=== PATIENT | female | born 1985 | race Asian ===

== ENCOUNTER 2018-03-01 13:15 | Outpatient (CLI) | payer BC, OTHER ==
--- NOTE | 2018-03-01 16:36 | Ultrasound Report ---
Reason: ENCTR FOR TEST, RESULT POSITIVE Procedure Date: 03/01/2018 Accession Number: [id number] / [id number] Procedure: US - OB 14+ Weeks CPT Code: FULL RESULT: EXAM: LIMITED OBSTETRICAL ULTRASOUND EARLY SECOND TRIMESTER EXAM DATE: 03/01/2018 03:23 PM. CLINICAL HISTORY: Uncertain dates. COMPARISON: None. TECHNIQUE: Real-time sonographic evaluation of the fetus performed by the product grader. Multiple aircraft sales representative static images were saved for review. DATING: Established EGA uncertain. EGA 26 weeks 3 days with ARCELIA 06/04/2018 based on the current ultrasound. GENERAL EVALUATION Doss . Cardiac activity: 154 bpm. movement: Present. Presentation: Cephalic. Placenta: Anterior and right lateral position. No evidence for previa. Amniotic fluid: Subjectively normal. MVP 4.5 cm. BIOMETRY Bi-Parietal Diameter (BPD): 6.8 cm, 27 weeks 2 days Head Circumference (HC): 24.6 cm, 26 weeks 5 days Abdominal Circumference (AC): 22.1 cm, 26 weeks 3 days Femur Length (FL): 4.9 cm, 26 weeks 2 days Estimated Weight: 951 gm. ANATOMY Within the limits of late second trimester ultrasound, no anatomic abnormality is detected. The profile/nasal bone, imaged intracranial structures, anterior abdominal wall, cord insert region, stomach, and bladder are imaged and appear normal for gestational age. Cardiac situs is normal. 4 chamber heart and outflow tracts are not seen. A left ventricular echogenic focus may be present. Both upper and lower extremities are seen. MATERNAL STRUCTURES Uterus: Unremarkable. Cervix: Long and closed. 4.2 cm. Right ovary/adnexa: Unremarkable. Left ovary/adnexa: Unremarkable. Free fluid: None. IMPRESSION: 1. Doss intrauterine with gestational age 26 weeks 3 days based on composite ultrasound measurements today. 2. ARCELIA 06/04/2018 3. cardiac anatomy and outflow tracts are not well seen. Otherwise no anatomic abnormalities are identified at this time. RADIA
== END 2018-03-01 13:16 | disposition home or self-care (01) ==
LOC: DI 13:15
PROVIDERS: ATTEND Obstetrics & Gynecology
DX: Z32.01 Encounter for pregnancy test, result positive (principal); Z3A.26 26 weeks gestation of pregnancy
CPT/HCPCS: 76805

== ENCOUNTER 2018-03-16 08:08 | Outpatient (CLI) | payer BC ==
[2018-03-16 09:39] LABS: BASOPHILS # (AUTO) 0.1 10^3/uL (0.0-0.1); BASOPHILS % (AUTO) 0.7 %; EOSINOPHILS # (AUTO) 0.2 10^3/uL (0.0-0.7); EOSINOPHILS % (AUTO) 1.6 %; HGB - HEMOGLOBIN 12.2 g/dL (12.0-16.0); LYMPHOCYTES # (AUTO) 1.6 10^3/uL (1.5-3.5); LYMPHOCYTES % (AUTO) 13.8 %; MEAN CORPUSCULAR HEMOGLOBIN 32.6 pg (27.0-31.0); MEAN CORPUSCULAR HGB CONC 34.5 g/dL (32.0-36.0); MEAN CORPUSCULAR VOLUME 94.6 fL (81.0-99.0); MEAN PLATELET VOLUME 7.1 fL (7.9-10.8); MONOCYTES # (AUTO) 0.9 10^3/uL (0.0-1.0); MONOCYTES % (AUTO) 7.7 %; NEUTROPHILS # (AUTO) 8.6 10^3/uL (1.5-6.6); NEUTROPHILS % (AUTO) 76.2 %; PLT - PLATELET COUNT 282 10^3/uL (130-450); RED BLOOD COUNT 3.73 10^6/uL (4.20-5.40); RED CELL DISTRIBUTION WIDTH 13.2 % (12.0-15.0); WHITE BLOOD COUNT 11.3 x10^3/uL (4.8-10.8)
[2018-03-16 10:09] LABS: BILIRUBIN,URINE NEGATIVE (NEGATIVE); GLUCOSE, URINE (UA) 250 mg/dL (NEGATIVE); KETONES,URINE (UA) NEGATIVE (NEGATIVE); LEUKOCYTE ESTERASE, URINE NEGATIVE (NEGATIVE); NITRITE,URINE NEGATIVE (NEGATIVE); OCCULT BLOOD,URINE NEGATIVE (NEGATIVE); PROTEIN,URINE NEGATIVE (NEGATIVE); UROBILINOGEN,URINE 0.2 (NORMAL) E.U./dL (NORMAL)
[2018-03-16 10:14] LABS: CLARITY,URINE CLEAR (CLEAR)
[2018-03-16 10:27] LABS: BACTERIA,URINE Few /HPF (None Seen); MUCUS,URINE Few Strands; RBC,URINE 0-5 /HPF (0-5); SQUAMOUS EPITHELIAL CELL,UR MOD Squamous (<= Few)
[2018-03-16 10:34] LABS: HEMOGLOBIN A1C 0.37 g/dL; HEMOGLOBIN A1C % 4.8 % (4.6-6.2)
[2018-03-17 11:57] LABS: HIV AG/AB 4TH GEN NON-REACTIVE (NON-REACTIVE)
[2018-03-17 13:02] LABS: HEPATITIS B SURFACE ANTIGEN NON-REACTIVE (NON-REACTIVE)
== END 2018-03-16 08:09 | disposition home or self-care (01) ==
LOC: LAB 08:08
PROVIDERS: ATTEND Obstetrics & Gynecology
DX: Z12.4 Encounter for screening for malignant neoplasm of cervix (principal); Z36.9 Encounter for antenatal screening, unspecified
CPT/HCPCS: 36415; 81001; 81599; 82950; 83036; 85025; 86592; 86762; 86850; 86900; 86901; 87340; 87389

== ENCOUNTER 2018-03-28 09:29 | Outpatient (CLI) | payer BC ==
--- NOTE | 2018-03-28 13:25 | Ultrasound Report ---
Reason: ENCOUNTER FOR SCREENING FOR MALFORMATION Procedure Date: 03/28/2018 Accession Number: [id number] / [id number] Procedure: US - OB Detailed Eval CPT Code: FULL RESULT: EXAM: COMPLETE OBSTETRICAL ULTRASOUND EXAM DATE: 03/28/2018 10:28 AM. CLINICAL HISTORY: anatomic survey. COMPARISON: OB 14+ WEEKS 03/01/2018 1:36 PM. TECHNIQUE: Real-time sonographic evaluation of the fetus performed by the inspector missile. Multiple policy services representative static images were saved for review. DATING: Established EGA 30 weeks 2 days with ARCELIA 06/04/2018 based on initial ultrasound. EGA 30 weeks 4 days with ARCELIA 06/02/2018 based on the current ultrasound. GENERAL EVALUATION Doss . Cardiac activity: 151 bpm. movement: Visualized. Presentation: Cephalic. Placenta: Anterior position. No evidence for previa. Amniotic fluid: Subjectively normal. MVP 4.3 cm. BIOMETRY Bi-Parietal Diameter (BPD): 7.8 cm, 31 weeks 1 day Head Circumference (HC): 28.3 cm, 31 weeks 0 days Abdominal Circumference (AC): 26 cm, 30 weeks 1 day Femur Length (FL): 5.8 cm, 30 weeks 3 days Estimated Weight: 1578 gm, 52nd percentile for 30 weeks 2 days. ANATOMY The four-chamber cardiac view is normal. The left ventricular outflow tract view is normal. The right ventricular outflow tract is not adequately visualized. The previously seen echogenic cardiac focus is redemonstrated; however, it is hypoechoic relative to bone and therefore not considered a true soft marker of aneuploidy based on today's exam findings. MATERNAL STRUCTURES Uterus: Unremarkable. Cervix: Long and closed. Transabdominal length 4.2 cm. Adnexa are not well seen. Free fluid: None. IMPRESSION: 1. Doss live intrauterine with gestational age 30 weeks 2 days based on prior ultrasound. 2. Estimated weight is within expected limits for assigned dating. 3. Normal 4-chamber view and left ventricular outflow tract view. Right ventricular outflow tract could not be adequately visualized, likely due to position and advanced gestational age. RADIA
== END 2018-03-28 09:30 | disposition home or self-care (01) ==
LOC: DI 09:29
PROVIDERS: ATTEND Obstetrics & Gynecology
DX: Z36.3 Encounter for antenatal screening for malformations (principal)
CPT/HCPCS: 76811

== ENCOUNTER 2018-04-19 13:08 | Outpatient (CLI) | payer BC ==
--- NOTE | 2018-04-19 16:48 | Ultrasound Report ---
Reason: ENCTR FOR OTHER SCREENING FUP Procedure Date: 04/19/2018 Accession Number: [id number] / [id number] Procedure: US - OB F/U or Repeat CPT Code: FULL RESULT: EXAM: OB F/U or Repeat DATE: 04/19/2018 2:16 PM CLINICAL HISTORY: Right ventricular outflow tract not seen on previous scans TECHNIQUE: Real-time scanning was performed with workforce services representative static images obtained. COMPARISON: 03/01/2018 and 03/28/2018 FINDINGS/IMPRESSION: The right ventricular outflow tract is well seen on the current study and appears normal. heart rate today 157 BPM.
== END 2018-04-19 13:09 | disposition home or self-care (01) ==
LOC: DI 13:08
PROVIDERS: ATTEND Obstetrics & Gynecology
DX: Z36.2 Encounter for other antenatal screening follow-up (principal)
CPT/HCPCS: 76816

== ENCOUNTER 2018-05-08 08:00 | Outpatient (CLI) | payer BC | END 2018-05-08 08:01 | disposition home or self-care (01) | LOC: LAB.R 08:00 | PROVIDERS: ATTEND Nurse Practitioner Obstetrics & Gynecology | DX: Z36.85 Encounter for antenatal screening for Streptococcus B (principal) | CPT/HCPCS: 87081 ==

== ENCOUNTER 2018-05-27 20:31 | Inpatient (IN) | payer BC ==
[2018-05-27 21:02] LABS: BILIRUBIN,URINE NEGATIVE (NEGATIVE); GLUCOSE, URINE (UA) NEGATIVE (NEGATIVE); KETONES,URINE (UA) NEGATIVE (NEGATIVE); LEUKOCYTE ESTERASE, URINE NEGATIVE (NEGATIVE); NITRITE,URINE NEGATIVE (NEGATIVE); OCCULT BLOOD,URINE LARGE (NEGATIVE); PROTEIN,URINE 100 mg/dL (NEGATIVE); UROBILINOGEN,URINE 0.2 (NORMAL) E.U./dL (NORMAL)
[2018-05-27 21:03] LABS: CLARITY,URINE CLOUDY (CLEAR)
[2018-05-27] MEDS ORDERED: SODIUM CHLORIDE FLUSH 0.9% 10 ML SYRINGE IVP PRN (21:10)
[2018-05-27 21:12] LABS: RUPTURE OF MEMBRANES PLUS POSITIVE (NEGATIVE)
[2018-05-27 21:17] LABS: BACTERIA,URINE Moderate /HPF (None Seen); RBC,URINE TNTC /HPF (0-5); SQUAMOUS EPITHELIAL CELL,UR MANY Squamous (<= Few)
[2018-05-27] MEDS ORDERED: OXYTOCIN/SODIUM CHLORIDE 500 ML IV ONE (21:19)
[2018-05-27] MEDS: SODIUM CHLORIDE FLUSH 0.9% 10 ML SYRINGE IVP SCH (21:34)
[2018-05-27 21:39] LABS: BASOPHILS # (AUTO) 0.1 10^3/uL (0.0-0.1); BASOPHILS % (AUTO) 0.7 %; EOSINOPHILS # (AUTO) 0.1 10^3/uL (0.0-0.7); EOSINOPHILS % (AUTO) 1.2 %; HGB - HEMOGLOBIN 11.7 g/dL (12.0-16.0); LYMPHOCYTES # (AUTO) 2.1 10^3/uL (1.5-3.5); LYMPHOCYTES % (AUTO) 20.3 %; MEAN CORPUSCULAR HEMOGLOBIN 30.2 pg (27.0-31.0); MEAN CORPUSCULAR HGB CONC 33.9 g/dL (32.0-36.0); MEAN CORPUSCULAR VOLUME 88.9 fL (81.0-99.0); MEAN PLATELET VOLUME 8.1 fL (7.9-10.8); MONOCYTES # (AUTO) 1.1 10^3/uL (0.0-1.0); MONOCYTES % (AUTO) 11.1 %; NEUTROPHILS # (AUTO) 6.8 10^3/uL (1.5-6.6); NEUTROPHILS % (AUTO) 66.7 %; PLT - PLATELET COUNT 312 10^3/uL (130-450); RED BLOOD COUNT 3.89 10^6/uL (4.20-5.40); RED CELL DISTRIBUTION WIDTH 14.4 % (12.0-15.0); WHITE BLOOD COUNT 10.2 x10^3/uL (4.8-10.8)
[2018-05-27] MEDS ORDERED: LACTATED RINGERS 1,000 ML IV SCH (22:00)
[2018-05-27] MEDS ORDERED: OXYTOCIN/SODIUM CHLORIDE 500 ML IV SCH (22:36)
[2018-05-27] MEDS ORDERED: SODIUM CHLORIDE FLUSH 0.9% 10 ML SYRINGE ONE (22:44)
[2018-05-28] MEDS ORDERED: LIDOCAINE 1% 50 ML MDV ONE (03:01)
[2018-05-28] MEDS ORDERED: HYDROCORTISONE 1% CREAM 28 GM TUBE PR PRN (04:10)
[2018-05-28] MEDS ORDERED: WITCH HAZEL/GLYCERIN 1 EACH MED..PAD TOP PRN (04:10)
[2018-05-28] MEDS ORDERED: ONDANSETRON 4 MG/2 ML VIAL IVP PRN (04:10)
[2018-05-28] MEDS ORDERED: HYDROCORTISONE/PRAMOXINE 10 GM PR PRN (04:10)
[2018-05-28] MEDS ORDERED: oxyCODONE 5 MG TABLET PO PRN (04:10)
--- NOTE | 2018-05-28 04:19 | HISTORY & PHYSICAL EXAMINATION ---
Admit History - Visit Reason Visit Reason: Contractions (every 6 min.), Membranes rupture (20;00) - : 2 Parity: 1 Premature: 0 Ectopic: 0 : 0 Care: positive: [facility] Risk/History: positive: No care ( care started at 27 weeks) Smoking Status: Never smoker - Mother's Labs Mother's Blood Type: positive: O Mother's RH: positive: Positive GBS: positive: Group B Step Negative Rubella Status: positive: Immune Meds/Allgy - Allergies Allergies/Adverse Reactions: Allergies Allergy/AdvReac Type Severity Reaction Status Date / Time No Known Drug Allergies Allergy Verified 05/27/18 22:23 Physical - Abdominal Exam Vital Signs: Temp Pulse Resp BP Pulse Ox 36.8 C 81 20 118/58 L 100 05/27/18 20:40 05/27/18 20:40 05/27/18 20:40 05/27/18 20:40 05/27/18 20:40 Contraction Frequency (min/apart): 6 Contraction Intensity: positive: Mild to moderate Uterine Resting Tone: positive: Soft - Monitoring Heart Rate Baseline: 145-50 Strip Review: positive: Category I - Presentation Presentation: positive: Vertex - Vaginal Exam Membranes: positive: Membranes ruptured Dilation (in cm): 2 Effacement (%): 50% Station: positive: -3 Cervical Position: positive: Midposition - Speculum Exam Speculum Exam Performed: positive: No Findings: positive: Gross leak (ROM+ positive) - Other Notes Labor Progress Note/Additional Text: Pt is a 32 YO EDC May. Started care at 27 weeks. O+, GBS negative, 50gm 91, Rubella immune. Started PN care late secondary to no insurance. Pt SROM at 1999 presented her at 2035. Contractions q 6 min.
--- NOTE | 2018-05-28 04:50 | DELIVERY NOTE ---
Delivery Note - Labor Labor: positive: Augmented by oxytocin - Delivery Method Delivery Method: positive: Spontaneous vaginal delivery - Presentation Presentation: positive: Vertex, GRETCHEN - left occiput anterior - Nuchal Cord Nuchal Cord: positive: Present (times 2. reduced) - Anesthetic Anesthetic Type: Anesthetic: positive: Lidocaine - 1% plain Volume: positive: Other (10) - Amniotic Fluid Description Amniotic Fluid Description: positive: Clear - Episiotomy Type Episiotomy Type: positive: None - Laceration Laceration: positive: 1st degree, Labial - Suture Suture Type: positive: Vicryl Suture Size: positive: 3-0 - Delivery Outcome Delivery Outcome: positive: Livebirth - [place]: positive: Placed in direct skin contact with mother, Bulb syringe, Stimulated, [place] used sex: positive: Male - Cord Cord: positive: 3 vessels - Placenta Placenta: positive: Intact (succerent loab) - Post Delivery Events Post Delivery Events: positive: No post delivery events - Delivery Comments (Free Text/Narrative) Delivery Comments (Free Text/Narrative): so pit augmentation started at 1. Reached complete at 0318. pushed from 0320 until 0343 she delivered a live male with apgars of 7/8 weighing 7 lb 7 oz over a first degree laceration. nucal cord tines two encountered and reduced. 23 min second stage. Placenta followed at 0350. Three vessel cord and succurant loab seen. EBL 200 ml Repare with 3-0 vicril
[2018-05-28] MEDS: ACETAMINOPHEN 500 MG TABLET PO SCH ×2 (08:43→16:53)
[2018-05-28] MEDS: IBUPROFEN 600 MG TABLET PO SCH ×3 (08:44→20:52)
[2018-05-28] MEDS: DOCUSATE SODIUM 100 MG CAPSULE PO SCH ×2 (08:44→20:53)
[2018-05-28] MEDS: SIMETHICONE CHEW 80 MG TABLET PO SCH ×2 (08:44→14:33)
[2018-05-28] MEDS: LACTATED RINGERS 1,000 ML IV SCH (18:01)
[2018-05-29] MEDS: ACETAMINOPHEN 500 MG TABLET PO SCH ×2 (00:58→08:09)
[2018-05-29] MEDS: IBUPROFEN 600 MG TABLET PO SCH ×2 (02:50→08:09)
--- NOTE | 2018-05-29 08:05 | PROVIDER PROGRESS NOTE ---
Subjective - Prog Note Date Prog Note Date: 05/29/18 Prog Note Time: 08:03 - Subjective Pt reports feeling: Improved (Pt is breast feeding. taking a regular diet. passing flatus. Pain 2/10 with pain medication.) Objective - Vital Signs/Intake & Output Reviewed Vital Signs: Yes Vital Signs: Vital Signs x48h Temp Pulse Resp BP BP Pulse Ox 05/29/18 01:05 102/60 05/29/18 00:53 36.7 C 69 14 82/47 L 99 Intake & Output: Intake & Output 05/26/18 05/27/18 05/28/18 05/29/18 23:59 23:59 23:59 23:59 Output Total 1400 Balance -1400 - Objective General Appearance: positive: No acute distress, Alert Respiratory: positive: Chest non-tender, No respiratory distress, Breath sounds nml Cardiovascular: positive: Regular rate & rhythm, No murmur Abdomen: positive: Non-tender, Nml bowel sounds, No distention, Mass (at U) Back: negative: CVA tenderness (R), CVA tenderness (L) Extremities: negative: Calf tenderness, Susan's sign/cords - Lab Results Fish Bones: 05/27/18 21:28 Assessment/Plan - Problem List (1) (spontaneous vaginal delivery) Impression: Pt is POD #1 Progressing well desires to go home. Reviewed Breast feeding, contraception. S/S if mastitis, Post Blues. RTC 2 and 6 weeks.
[2018-05-29] MEDS: DOCUSATE SODIUM 100 MG CAPSULE PO SCH (08:09)
[2018-05-29] MEDS: SIMETHICONE CHEW 80 MG TABLET PO SCH (08:10)
--- NOTE | 2018-05-29 08:11 | Discharge Plan ---
Discharge Plan Disposition: 01 Home, Self Care Condition: Good Diet: Regular Activity Restrictions: Pelvic rest 6 weeks Shower Restrictions: No Driving Restrictions: No Weight Bearing: Full Weight No Smoking: If you smoke, Please STOP! Call for help. Follow-up with: Jeff Vitale MD [Provider Admit Priv/Credential] -
[2018-05-29] MEDS: SODIUM CHLORIDE FLUSH 0.9% 10 ML SYRINGE IVP SCH (08:14)
[2018-05-29] MEDS: LACTATED RINGERS 1,000 ML IV SCH (08:14)
[2018-05-29 11:24] VITALS: BP 110/70
--- NOTE | 2018-05-29 12:12 | Labor Flowsheet ---
Labor Flowsheet Datetime Report Generated by CPN: 05/29/2018 12:12 Datetime: 05/29/2018 07:49 VITAL SIGNS NBP Sys/Connie/Mean (mmHg): 106 : 73 : 79 Pulse: 69 LaborFlag: Labor Datetime: 05/28/2018 05:54 SpO2 (%): 99 Datetime: 05/28/2018 03:46 Membranes Ruptured Date/Time: 05/27/2018 20:00 Datetime: 05/28/2018 03:40 UTERINE ACTIVITY Monitor Mode: External Frequency (min): 1.5-2 Quality: Strong Duration (sec): 60-90 Pattern: Normal: <= 5 Contractions in 10 Minutes Resting Tone (Palpate): Relaxed ASSESSMENT A Monitor Mode: External US FHR Baseline Rate : 150 Variability: Moderate 6-25 bpm Accelerations: None Decelerations: Variable Category: Category II Comments: variables with pushing STAGE 2 Pushing: Coached on Pushing Pushing Position: Pushing with Contractions Pushing Progress: Descent with Pushing; with Pushing; Pushing Effectively with Contraction s Datetime: 05/28/2018 03:18 VAGINAL EXAM Dilatation (cm): 10.0 Effacement (%): 100 Station: 0 Exam by: Dr. Vitale Datetime: 05/28/2018 03:12 Provider Reviewed Strip: Yes Datetime: 05/28/2018 03:00 Actions for Decelerations: Side to Side Datetime: 05/28/2018 02:53 Vaginal Exam Comments: called 2nd RN to bedside to check SVE behind RN Datetime: 05/28/2018 02:42 PAIN Pain Scale: 10 Pain Goal: 4 Pain Coping: Breathing Through Contractions Comfort Measures: Breathing/Relaxation Datetime: 05/28/2018 02:40 Temperature (C): 36.9 COMMUNICATION Communication: Call/Page Placed to Provider Provider Notified (Name): Dr. Giem Notification Reason: Labor Status Communication Comments: Attend delivery Datetime: 05/28/2018 02:37 Patient Position/Activity: Right Lateral Datetime: 05/28/2018 02:35 Contraction Comments: RN @ bedside Datetime: 05/28/2018 02:34 Monitor Interventions for UA: [place] Adjusted Datetime: 05/28/2018 02:33 Patient Care Comments: pt getting into bed Datetime: 05/28/2018 02:14 I/O Interventions: Up to BR Datetime: 05/28/2018 01:50 Monitor Interventions for FHR: Ultrasound Adjusted Datetime: 05/28/2018 01:19 Pain Assessment Comments: Pt in tub with ; using home essential oils in bath for relaxation Datetime: 05/28/2018 01:10 Cervix, Consistency: Soft Cervix, Position: Posterior Datetime: 05/27/2018 23:08 Pain Relief Measures: Comfort Measures Datetime: 05/27/2018 22:50 MEDICATIONS Pitocin (milliunits): Started @ 1 PATIENT CARE IV/Blood Work: IV Infusing per Order Datetime: 05/27/2018 22:48 Pitocin Checklist: At Least 1 Acceleration of 15 bpm x 15 Seconds in 30 Minutes or Adequate Variabi lity; No More than 1 Late Deceleration Occurred in Past 30 Minutes; No More than 2 Variable Decelerat ions > 60 Seconds in Duration and decreasing >60 bpm in 30 minutes; No More than 5 Uterine Contractio ns in 10 Minutes for any 20 Minute Interval; Uterus Palpates Soft between Contractions TEACHING Instructional Method: Verbal Plan of Care: Plan of Care Discussed Labor/Induction: Augmentation Medications: Pitocin PTL/PROM: Hydration Datetime: 05/27/2018 22:35 Stage of : Labor
--- NOTE | 2018-05-29 12:40 | DISCHARGE SUMMARY ---
Physician: Jeff Vitale MD DATE OF ADMISSION: 05/27/2018 DATE OF DISCHARGE: 05/29/2018 ADMITTING DIAGNOSES 1. Spontaneous rupture of membranes. 2. 38-week and 6-days. 3. Early labor. DISCHARGE DIAGNOSES 1. Spontaneous rupture of membranes. 2. 38-week and 6-days. 3. Early labor. 4. Spontaneous delivery of live male infant. PROCEDURES: 1. Spontaneous vaginal delivery. 2. Pitocin Augmentation PRESENTING HISTORY: The patient is a 32-year-old G2, P1, female whose due date was 06/04. She started OB care at 27 weeks. She was noted to be O positive, group B strep negative. A 50 gram Glucola was 91. Rubella immune. She spontaneously ruptured at 8 o'clock on the evening of 05/27 and presented to labor and delivery with contractions every 6 minutes. LABORATORIES: CBC on admission showed a white count of 10.2, hemoglobin 11.7, hematocrit 34.6, platelets were 312. HOSPITAL COURSE: The patient was admitted, at which time she had documentation of rupture of membranes. Because of infrequent contractions, she was augmented with 1 unit of Pitocin. She progressed to complete and started pushing. She had 23 minute second stage at which time she delivered a live male infant with Apgars 7 and 8, weighing 7 pounds 7 ounces. At time of delivery, she was noted to have nuchal cord x2, which were reduced. Her placenta followed, was inspected with a succenturiate lobe noted. EBL was roughly 200 mL. She had a small first-degree laceration at the site of her previous mediolateral episiotomy. This was repaired with 3-0 Vicryl Rapide subcuticularly. Her course has been unremarkable. She is taking a regular diet. She is progressing well at this time. She is being discharged to home with instructions to followup in the clinic in 2 and 4 weeks. She has been given instruction regarding as well as contraception and to monitor for blues. She has been instructed on signs and symptoms of mastitis. DISCHARGE MEDICATIONS: Motrin and Colace. TD: 05/29/2018 08:23 STEPHAN
== END 2018-05-29 10:50 | disposition home or self-care (01) | DRG 807 ==
LOC: WFO 20:31 → FBP 20:33 → WFO 21:14
PROVIDERS: ADMIT Obstetrics & Gynecology; ATTEND Obstetrics & Gynecology
PROC: 10E0XZZ Delivery of Products of Conception, External Approach (ICD-10-PCS; principal; 2018-05-28)
PROC: 0HQ9XZZ Repair Perineum Skin, External Approach (ICD-10-PCS; 2018-05-28)
DX: O43.193 Other malformation of placenta, third trimester (principal); Z37.0 Single live birth; O69.81X0 Labor and delivery complicated by cord around neck, without compression, not applicable or unspecified; O70.0 First degree perineal laceration during delivery; Z3A.38 38 weeks gestation of pregnancy
CPT/HCPCS: 81001; 84112; 85025; 99213

== ENCOUNTER 2019-07-28 09:09 | Emergency (ER) | payer BC, OTHER ==
[2019-07-28 09:47] LABS: BILIRUBIN,URINE NEGATIVE (NEGATIVE); GLUCOSE, URINE (UA) NEGATIVE (NEGATIVE); KETONES,URINE (UA) NEGATIVE (NEGATIVE); LEUKOCYTE ESTERASE, URINE LARGE (NEGATIVE); NITRITE,URINE NEGATIVE (NEGATIVE); OCCULT BLOOD,URINE MODERATE (NEGATIVE); PROTEIN,URINE TRACE mg/dL (NEGATIVE); UROBILINOGEN,URINE 0.2 (NORMAL) E.U./dL (NORMAL)
[2019-07-28 09:49] LABS: BASOPHILS # (AUTO) 0.1 10^3/uL (0.0-0.1); BASOPHILS % (AUTO) 0.4 %; EOSINOPHILS % (AUTO) 0.3 %; HGB - HEMOGLOBIN 14.3 g/dL (12.0-16.0); LYMPHOCYTES # (AUTO) 2.2 10^3/uL (1.5-3.5); LYMPHOCYTES % (AUTO) 17.6 %; MEAN CORPUSCULAR HEMOGLOBIN 31.4 pg (27.0-31.0); MEAN CORPUSCULAR HGB CONC 33.3 g/dL (32.0-36.0); MEAN CORPUSCULAR VOLUME 94.3 fL (81.0-99.0); MEAN PLATELET VOLUME 9.9 fL (7.9-10.8); NEUTROPHILS # (AUTO) 9.2 10^3/uL (1.5-6.6); NEUTROPHILS % (AUTO) 73.3 %; PLT - PLATELET COUNT 315 10^3/uL (130-450); RED BLOOD COUNT 4.55 10^6/uL (4.20-5.40); RED CELL DISTRIBUTION WIDTH 12.2 % (12.0-15.0); WHITE BLOOD COUNT 12.6 x10^3/uL (4.8-10.8)
[2019-07-28 09:50] LABS: CLARITY,URINE HAZY (CLEAR)
[2019-07-28 09:51] LABS: HCG UR QUAL NEGATIVE
[2019-07-28 10:01] LABS: ALBUMIN 4.4 g/dL (3.2-5.5); ALBUMIN/GLOBULIN RATIO 1.2 (1.0-2.2); BILIRUBIN,TOTAL 1.2 mg/dL (0.2-1.0); CALCIUM 8.9 mg/dL (8.5-10.3); CREATININE 0.7 mg/dL (0.4-1.0); TOTAL PROTEIN 8.1 g/dL (6.7-8.2)
--- NOTE | 2019-07-28 10:05 | ED Physician Documentation ---
History of Present Illness - Stated complaint Stated Complaint: RT SIDE PX - Chief complaint Chief Complaint: Abd Pain - Additonal information Additional information: This is a 33-year-old female who denies past medical history presents with right lower quadrant pain, anorexia, and diarrhea. Her symptoms began yesterday, initially her pain was crampy and mild, she felt a bit bloated, but her pain is always been localized in the right lower quadrant. Overnight the pain got worse, is currently 6 out of 10 in severity. She is not eaten anything since last night, but she denies vomiting at this time. She has had multiple episodes of loose stool which have been nonbloody. No fever. She denies any past abdominal surgeries. No vaginal symptoms, no concern for STI. Review of Systems Constitutional: denies: Fever Cardiac: denies: Chest pain / pressure GI: reports: Abdominal Pain : reports: Dysuria Skin: denies: Rash Neurologic: denies: Generalized weakness Immunocompromised: denies: Immunocompromised PD PAST MEDICAL HISTORY - Present Medications Home Medications: Ambulatory Orders Medication Instructions Recorded Confirmed Cefdinir 300 mg PO BID #14 capsule 07/28/19 - Allergies Allergies/Adverse Reactions: Allergies Allergy/AdvReac Type Severity Reaction Status Date / Time No Known Drug Allergies Allergy Verified 07/28/19 09:23 - Social History Smoking Status: Never smoker PD ED PE NORMAL - Vitals Vital signs reviewed: Yes - General General: Alert and oriented X 3, No acute distress - HEENT HEENT: PERRL - Neck Neck: Supple, no meningeal sign - Cardiac Cardiac: RRR - Respiratory Respiratory: No respiratory distress, Clear bilaterally - Abdomen Abdomen: Soft, Non distended, Other (Focal RLQ tenderness, no guarding. Remainder of the abdomen is non-tender.) - Derm Derm: Warm and dry - Extremities Extremities: No deformity - Neuro Neuro: Alert and oriented X 3 - Psych Psych: Normal mood, Normal affect Results - Vitals Vitals: Vital Signs - 24 hr 07/28/19 07/28/19 07/28/19 09:20 09:34 10:29 Temperature 36.6 C 37.2 C Heart Rate 72 74 79 Respiratory 16 16 18 Rate Blood Pressure 103/72 117/70 114/90 H O2 Saturation 100 100 99 07/28/19 07/28/19 11:07 12:35 Temperature 37.5 C Heart Rate 72 77 Respiratory 16 18 Rate Blood Pressure 112/73 111/69 O2 Saturation 100 98 Oxygen O2 Source Room air - Labs Labs: Laboratory Tests 07/28/19 07/28/19 07/28/19 09:30 09:40 09:40 WBC 12.6 H RBC 4.55 Hgb 14.3 Hct 42.9 MCV 94.3 MCH 31.4 H MCHC 33.3 RDW 12.2 Plt Count 315 MPV 9.9 Neut # (Auto) 9.2 H Lymph # (Auto) 2.2 Bay # (Auto) 1.0 Eos # (Auto) 0.0 Baso # (Auto) 0.1 Absolute Nucleated RBC 0.00 Nucleated RBC % 0.0 Sodium 136 Potassium 3.5 Chloride 97 L Carbon Dioxide 27 Anion Gap 12.0 BUN 8 Creatinine 0.7 Estimated GFR (MDRD) 98 Glucose 107 H Calcium 8.9 Total Bilirubin 1.2 H AST 20 ALT 17 Alkaline Phosphatase 38 L Total Protein 8.1 Albumin 4.4 Globulin 3.7 Albumin/Globulin Ratio 1.2 Lipase 24 Urine Color YELLOW Urine Clarity HAZY Urine pH 6.0 Ur Specific [place] 1.010 Urine Protein TRACE Urine Glucose (UA) NEGATIVE Urine Ketones NEGATIVE Urine Occult Blood MODERATE H Urine Nitrite NEGATIVE Urine Bilirubin NEGATIVE Urine Urobilinogen 0.2 (NORMAL) Ur Leukocyte Esterase LARGE H Urine RBC 6-10 H Urine WBC >25 H Ur Squamous Epith Cells RARE Squamous Urine Bacteria Few Ur Microscopic Review INDICATED Urine Culture Comments INDICATED Urine HCG, Qual NEGATIVE - Rads (name of study) CT abd/pelvis W Radiology: Other (Pyeloureitis without abscess or obstruction. Appendix is normal in appearance.) PD MEDICAL DECISION MAKING - ED course Complexity details: considered differential (Appendicitis, UTI, torsion, ectopic , gastroenteritis, pyelonephritis, nephrolithiaisis) ED course: Pt is non-toxic, labs do show a leukocytosis and pt has focal RLQ tenderness raising concern for appendicitis. CT shows pyelouretitis on the right side, no appendicitis. Urine is consistent with urinary infection. She does have some right flank tenderness. She was given ceftriaxone and continued to be well- appearing with a benign exam and unremarkable vital signs. We will treat with cefdinir, I discussed PCP follow up and return precuations and pt was discharged home in very good condition. Departure - Departure Disposition: 01 Home, Self Care Clinical Impression: Pyelonephritis Condition: Good Instructions: Pyelonephritis Dc Follow-Up: Elliott Sandhu MD [Emergency Provider] - Prescriptions: Cefdinir 300 mg PO BID #14 capsule Comments: You have a bladder infection which is extending up towards your right kidney. Please take the antibiotic as prescribed, if you are having worsening such as fever, or severe significant pain despite the antibiotic, return to the emergency department. You may take Tylenol and ibuprofen for discomfort. Forms: Activity restrictions Discharge Date/Time: 07/28/19 12:36
[2019-07-28 10:06] LABS: BACTERIA,URINE Few /HPF (None Seen); SQUAMOUS EPITHELIAL CELL,UR RARE Squamous (<= Few)
[2019-07-28] MEDS ORDERED: MORPHINE 2 MG/ML CARPUJECT IVP STA (10:06)
[2019-07-28] MEDS ORDERED: ONDANSETRON 4 MG/2 ML VIAL IVP STA (10:06)
[2019-07-28] MEDS ORDERED: IOVERSOL 320 100 ML VIAL IVP ONE ×2 (10:31→10:59)
--- NOTE | 2019-07-28 11:21 | CT Report ---
Reason: RLQ pain Procedure Date: 07/28/2019 Accession Number: [id number] / [id number] Procedure: CT - Abdomen/Pelvis W CPT Code: Final Report FULL RESULT: EXAM: CT ABDOMEN AND PELVIS EXAM DATE: 07/28/2019 10:57 AM. CLINICAL HISTORY: Right lower quadrant pain. COMPARISONS: None. TECHNIQUE: Routine helical CT imaging was performed through the abdomen and pelvis. IV contrast: Optiray-320 90 mL. Enteric contrast: No. Reconstructions: Coronal and sagittal. In accordance with CT protocol optimization, one or more of the following dose reduction techniques were utilized for this exam: automated exposure control, adjustment of mA and/or KV based on patient size, or use of iterative reconstructive technique. FINDINGS: Lung Bases: Minimal bibasilar scar/atelectasis. Included portions of the heart are unremarkable. Bilateral breast implants noted. Liver: Normal. No masses. Gallbladder/Bile Ducts: Unremarkable. Spleen: Normal. Pancreas: Normal. Adrenal Glands: Normal. Kidneys: There is diffuse enhancement of the right ureter down to the urinary bladder. No distinct evidence for obstructing calculus. There is urothelial enhancement of the right renal pelvis. No renal masses. No definitive evidence for focal parenchymal right renal pyelonephritis. Left kidney is unremarkable. Peritoneal Cavity/Bowel: Stomach is mildly distended and unremarkable. No small-bowel obstruction. Small fatty umbilical hernia. No bowel wall thickening. No diverticulitis. No free air. The appendix is well visualized and normal. Pelvic Organs: Urinary bladder is mildly distended and unremarkable. No bladder calculi. Small volume of pelvic free fluid. No pelvic adenopathy. Vasculature: No aneurysms or other significant abnormality. Bones: No significant abnormality. Other: None. IMPRESSION: 1. Normal appendix. 2. Diffuse right ureteral enhancement and thickening, as well as urothelial enhancement of the right renal pelvis. No obstructing calculus is seen. Findings can be seen with pyeloureteritis. No evidence for renal abscess. 3. No bowel obstruction. No diverticulitis. RADIA
[2019-07-28] MEDS ORDERED: cefTRIAXone 1 GM in SODIUM CHLORIDE 0.9% MINIBAG 100 ML IV STA (11:42)
[2019-07-28 12:35] VITALS: BP 111/69
== END 2019-07-28 12:36 | disposition home or self-care (01) ==
LOC: ED 09:09
DX: N12 Tubulo-interstitial nephritis, not specified as acute or chronic (principal)
CPT/HCPCS: 36415; 74177; 80053; 81001; 81025; 83690; 85025; 87086; 87181; 96365; 96375; 99284; Q9967; 81003

== ENCOUNTER 2021-04-29 17:41 | Emergency (ER) | payer OTHER, BC ==
[2021-04-29] MEDS ORDERED: KETOROLAC 60 MG/2 ML VIAL IM STA (18:44)
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
--- NOTE | 2021-04-29 19:57 | XRAY Report ---
PROCEDURE: Chest 2 View X-Ray INDICATIONS: cough TECHNIQUE: 2 view(s) of the chest. COMPARISON: None. FINDINGS: Surgical changes and devices: None. Lungs and pleura: No pleural effusions or pneumothorax. Lungs are clear. Mediastinum: Mediastinal contours are normal. Heart size is normal. Bones and chest wall: No suspicious bony abnormalities. Soft tissues appear unremarkable. IMPRESSION: No evidence acute pulmonary process. Reviewed by: Fabian Paniagua MD on 04/29/2021 7:55 PM PDT Approved by: Fabian Paniagua MD on 04/29/2021 7:55 PM PDT Station ID: [id number]
[2021-04-29 20:07] VITALS: BP 116/89
== END 2021-04-29 20:13 | disposition home or self-care (01) ==
LOC: ED 17:41
DX: M54.6 Pain in thoracic spine (principal); V89.2XXA Person injured in unspecified motor-vehicle accident, traffic, initial encounter
CPT/HCPCS: 96372; 99282; 99283